=== PATIENT | male | born 1950 | race Hispanic/Latino ===

== ENCOUNTER → 2018-03-14 | Outpatient (CLI) | payer MEDICARE, OTHER ==
--- NOTE | 2018-03-14 12:04 | Diagnostic Imaging Report ---
PROCEDURE:ABDOMINAL ULTRASOUND COMPARISON:Abdominal ultrasound 12/27/2016 INDICATIONS:CALCULUS OF GB WITHOUT CHOLECYSTITIS TECHNIQUE: Sorto-scale and color sonographic images were obtained of the abdomen in transverse and sagittal planes. FINDINGS: Liver: 14.8 in length in right midclavicular line. Increased echogenicity. No masses. Main portal vein: 0.8 cm in diameter, hepatopetal flow Gallbladder: Contracted with shadowing stones. Common Bile Duct: 0.4 cm in diameter, normal Sonographic Hess's sign: Negative Right kidney: 11.6 cm in length. No hydronephrosis, stones, or masses. Left kidney: 11.2 cm in length. No hydronephrosis, stones, or masses. Spleen: 9.8 cm in length. No masses. Pancreas: The visualized portions are unremarkable. Inferior vena cava: Visualized portions are within normal limits Aorta: Visualized portions are within normal limits Ascites: None CONCLUSION: 1. Cholelithiasis with persistent contracted appearance of the gallbladder which may be related to recent meal ingestion or chronic cholecystitis. 2. Hepatic steatosis. Dictated by: Serge Tom M.D. on 03/14/2018 at 12:07 Electronically approved by: Serge Tom M.D. on 03/14/2018 at 12:07
== END ==
LOC: US 09:16
PROVIDERS: ATTEND Surgery
DX: K80.20 Calculus of gallbladder without cholecystitis without obstruction (principal)
CPT/HCPCS: 76700